=== PATIENT | male | born 1945 | race Caucasian/White ===

== ENCOUNTER 2024-02-27 00:52 | Emergency (ER) | payer MEDICARE, SELFPAY ==
[2024-02-27 01:01] VITALS: BP 174/79; PULSE 120; RESP 18; TEMP 36.9; O2SAT 95; BMI 27.3
--- NOTE | 2024-02-27 01:01 | ED.GENADULT ---
HPI - General Adult General Chief complaint: Nasal Problem Stated complaint: Nosebleed Time Seen by Provider: 02/27/24 00:55 Source: patient Mode of arrival: Ambulatory Limitations: no limitations History of Present Illness HPI narrative: 78-year-old male. Is on warfarin. Is here for evaluation of a nosebleed. He states it started after he picked his nose and caused it to bleed earlier this evening. Normally he can get his nose to stop bleeding on its own but could not stop it this evening. Review of Systems ENT Ears, Nose, Mouth, and Throat: Reports system reviewed and no additional complaints, except as documented Exam Initial Vital Signs Initial Vital Signs: Vital Signs Temperature 98.4 F 02/27/24 01:01 Pulse Rate 120 H 02/27/24 01:01 Respiratory Rate 18 02/27/24 01:01 Blood Pressure 174/79 H 02/27/24 01:01 Pulse Oximetry 95 02/27/24 01:01 Oxygen Delivery Method Room Air 02/27/24 01:01 HENMT ELIENH Other: Mild oozing from the septum of the right nares. No hematoma noted. Course Orders Ordered: ED Orders 02/27/24 01:00 Prothrombin Time INR Stat Discontinued Medications Oxymetazoline HCl (Oxymetazoline Nasal [place] 30 Ml) 2 sprays NASAL NOW ONE Stop: 02/27/24 00:58 Last Admin: 02/27/24 01:51 Dose: Not Given Vital Signs Vital signs: Vital Signs - 8 hr 02/27/24 01:01 02/27/24 01:52 Temperature 98.4 F Pulse Rate 120 H 101 H Respiratory Rate 18 18 Blood Pressure 174/79 H 184/84 H Pulse Oximetry 95 96 Oxygen Delivery Method Room Air Room Air Medical Decision Making Lab Data Labs: Lab Results 02/27/24 Range/Units 01:05 PT 53.1 H (9.4-12.5) SECONDS INR 4.6 H* (0.9-1.3) MDM Narrative Medical decision making narrative: Mild oozing from what appears to be the anterior portion of the nasal septum on the right without hematoma. Nasal clamp was placed and after 15 minutes he was removed. No active bleeding. Will discharge patient home with a nasal clamp and instructions for return. His INR was supratherapeutic. No indication for reversal today. Will have him skip his next 2 doses and then resume his Coumadin as previously directed and contact his primary doctor for follow-up. He was given return precautions. He expressed understanding and agreement. Discharge Plan Departure Patient Disposition: Home Clinical Impression: Epistaxis, Supratherapeutic INR Instructions: DI for Nosebleed Activity Restrictions/Additional Instructions: Recommend that you skip the next 2 days warfarin/Coumadin as her was slightly elevated today. After that you can start taking your normal dosing regimen. Contact your for a follow-up. Return to the emergency department for worsening symptoms. Referrals: Dee Renteria MD [Primary Care Provider] - Stand Alone Forms: Patient Portal/API/Survey
[2024-02-27 01:19] LABS: Prothrombin Time 53.1 SECONDS (9.4-12.5)
[2024-02-27 01:33] LABS: INR 4.6 (0.9-1.3)
[2024-02-27 01:52] VITALS: BP 184/84; PULSE 101; RESP 18; O2SAT 96
== END 2024-02-27 01:55 | disposition home or self-care (01) ==
PROVIDERS: Emergency Provider Emergency Medicine; PCP Family Medicine
DX: R04.0 Epistaxis (principal); R79.1 Abnormal coagulation profile; Z79.01 Long term (current) use of anticoagulants
CPT/HCPCS: 36415; 85610; 99283

== ENCOUNTER → 2024-08-27 11:48 | Outpatient (CLI) | payer MEDICARE, SELFPAY ==
--- NOTE | 2024-08-27 12:15 | EKG_ITS ---
[place] [address] [place] [id number] Test Date: 2024-08-27 Pat Name: Donavon Lay Department: [facility] Room: Gender: Male [employer] Specialist: MAR : 1945 Requested By: Order Number: [id number] Reading MD: Kade Acuña Measurements Intervals [place] Rate: 87 P: HI: QRS: 11 QRSD: 174 T: 140 QT: 416 QTc: 500 Interpretive Statements Atrial fibrillation with occasional ventricular-paced complexes and with premature ventricular or aberrantly conducted complexes Left bundle branch block Electronically Signed On 08-28-2024 17:39:42 PDT by Kade Acuña
== END ==
LOC: RESP 11:57
PROVIDERS: PCP Family Medicine
DX: I48.11 Longstanding persistent atrial fibrillation (principal)
CPT/HCPCS: 93005